=== PATIENT | female | born 1945 | race Caucasian/White ===

== ENCOUNTER 2024-05-07 12:11 | Inpatient (IN) | payer MEDICARE, BC, SELFPAY ==
[2024-05-07] VITALS (8 sets, daily range): BP systolic 109–127; BP diastolic 49–63
[2024-05-07 05:14] LABS: % Basophils 0.4 % (0-2); % Eosinophils 0.6 % (0-6); % Immature Granulocytes 0.4 % (0-0.5); % Lymphocytes 13.7 % (20.5-51.1); % Neutrophils 77.9 % (42.2-75.2); Absolute Basophils 0.1 10^3/uL (0-0.2); Absolute Eosinophils 0.1 10^3/uL (0-0.7); Absolute Lymphocytes 1.6 10^3/uL (1.2-3.4); Absolute Monocytes 0.8 10^3/uL (0.1-0.6); Absolute Neutrophils 8.8 10^3/uL (1.4-6.5); Hemoglobin 13.1 g/dL (12.0-16.0); Mean Corp Hgb Conc. 34.5 g/dL (33.0-37.0); Mean Corpuscular Hgb 31.1 pg (27.0-31.0); Mean Corpuscular Volume 90.3 fL (81.0-99.0); Mean Platelet Volume 10.6 fL (7.4-10.4); Nucleated Red Blood Cells % 0 %; Platelet Count 249 10^3/uL (130-400); Red Blood Cell Count 4.21 10^6/uL (4.20-5.40); Red Cell Dist. Width 12.4 % (11.5-14.5); White Blood Cell Count 11.3 10^3/uL (4.8-10.8)
[2024-05-07 05:38] LABS: ALT (SGPT) 20 U/L (0-35); AST (SGOT) 30 U/L (14-36); Albumin 4.4 g/dl (3.5-5.0); Alkaline Phosphatase 102 U/L (38-126); Blood Urea Nitrogen 19 mg/dl (7-17); Calcium 9.7 mg/dl (8.4-10.2); Carbon Dioxide 25 mmol/L (22-30); Chloride 100 mmol/L (98-107); Glucose 126 mg/dl (70-99); Potassium 3.7 mmol/L (3.5-5.1); Sodium 136 mmol/L (135-145); Total Bilirubin 0.7 mg/dl (0.2-1.3); eGFR > 60.00
--- NOTE | 2024-05-07 06:04 | ED.GENMED ---
History of Present Illness
<Valdez Martinez MD, Resident - Last Filed: 05/07/24 15:10>
General
Chief Complaint: Abdominal Pain
Source: patient and family
Time Seen by Provider: 05/07/24 06:02
Nursing documentation reviewed up to this point in time: agreed with
Travel History
Have you traveled to any high risk areas for coronavirus over the past 14 days?: No
Have you had any contact with someone who has COVID-19?: No
Do you have any symptoms of coronavirus? Fever > 100 degrees, chills, cough, shortness of breath, sore throat, loss of taste or smell, muscle aches, or headache?: No
History of Present Illness
History of Present Illness:
79-year-old female with PMH of hypercholesterolemia, osteopenia, and past surgical history of MARY/BSO who presented to the emergency department today with right upper quadrant sharp abdominal pain, rated 9/10, radiating to the back and to the right
leg that started around 2 AM this morning. Patient stated that the pain has moved to the epigastric region and also to the suprapubic area. Pain has not identified any aggravating or relieving factors. Patient was seen with daughter at bedside
who stated that her mom has been lifting heavy objects recently while trying to help her dad who is sick. Patient reports that she has not been drinking enough water as she should.
Past History
<Valdez Martinez MD, Resident - Last Filed: 05/07/24 15:10>
Past History
ED Past Medical History: Hypercholesterolemia and Other (Osteopenia)
ED Past Surgical History: Gynecological (MARY/BSO)
Patient has exhibited threatening behavior?: No
Social History
Tobacco: Non-smoker
Alcohol: Occasional
Drug: None
Personal:
Living: with family
Employment: Retired
Review of Systems
<Valdez Martinez MD, Resident - Last Filed: 05/07/24 15:10>
Review of Systems
All Other Systems: ROS reviewed and negative except as documented in HPI and ROS
Phy Exam
<Valdez Martinez MD, Resident - Last Filed: 05/07/24 15:10>
General Physical Exam
General Presentation: well appearing and no apparent distress
General age: appears stated age
General Skin: warm
General Habitus: normal
General Mental: alert
General Hydration: dry mucous membranes
Cardiovascular Exam
Cardiovascular Exam: regular rate/rhythm, no edema, no gallop and no murmur
Pulmonary Exam
Pulmonary Exam: lungs clear, no respiratory distress, no rales and no crackles
Gastrointestinal Exam
Gastrointestinal Exam: normal bowel sounds, non tender, soft and no organomegaly
Neurological Exam
Neurological Exam: alert, oriented x3, CN II-XII intact and no motor deficits
Cranial
Cranial Nerves: normal
Course
<Valdez Martinez MD, Resident - Last Filed: 05/07/24 15:10>
Orders/Labs/Results
Orders:
Orders
05/07/24 04:53
CMP [Comprehensive Metabolic Panel] Urgent
Complete Blood Count/With Diff Urgent
Lipase Urgent
Comment: ADD ON
05/07/24 05:16
EKG [Electrocardiogram (*1)] Urgent
Reason for Study: Abdominal Pain
EKG- Treatment ONCE
05/07/24 05:49
CR Chest - 2 Views Urgent
Comment:
Reason For Exam: abd pain, chest pain
05/07/24 05:52
Add On- LAB Urgent
Tests Added?: lipase
05/07/24 05:53
Troponin I Urgent
05/07/24 Breakfast
NPO
Allow oral meds: Yes
Allow clear liquids: No
NPO with Ice Chips: Yes
05/07/24 06:15
US Abdomen Complete/Upper Stat
Comment:
Reason For Exam: RUQ/ epigastric abd pain
05/07/24 07:21
0.9% Sodium Chloride 1000 ml [Nss] 1,000 ml IV BOLUS
HYDROmorphone [Dilaudid] 0.5 mg IV NOW STA
Ondansetron Injectable [Zofran] 4 mg IV NOW STA
05/07/24 07:24
CT Abd/pelvis W Iv Cont Urgent
Comment:
Reason For Exam: Abdominal pain
05/07/24 09:40
HYDROmorphone [Dilaudid] 0.5 mg IV NOW STA
05/07/24 09:54
Ondansetron Injectable [Zofran] 4 mg IV NOW STA
05/07/24 12:05
Admit/Transfer Patient As Directed
Co-Sign Provider:
Level of Care: Inpatient admission
Assign to:: Medical/Surgical
Physician / Group: Hospitalist
Diagnosis: SBO
Reason for Hospitalization: SBO
Expected length of stay greater than two midnights?: Yes
ELOS- Estimated Length of Stay in days: 2
I certify the patient meets the requirements for IP care: Yes
Code Status As Directed
Resuscitation Status: Full Code
PRN Pain Medication Management As Directed
May give lesser potent ordered pain med per pt: Yes
preference::
Protocol:: Medication orders for pain may be administered in a
manner that supports deferring to patient preference
when the pt is:
- Requesting an ordered lesser potent pain medication.
Least to most potent pain medications are defined
as: acetaminophen < NSAID < tramadol < opioids
(morphine, oxycodone, hydromorphone).
- Requesting a lesser dose of the same medication IF
ORDERED.
- Requesting a less intrusive route of administration
if both routes are prescribed by the provider (PO <
IV).
05/07/24 14:08
Bisacodyl [Dulcolax] 10 mg RECTAL [id number] PRN
Dextrose 5%/Lactringers 1000ML [D5lr] 1,000 ml IV 80 mls/hr
Docusate W/Senna [Senokot-S] 1 tablet PO BIDPRN PRN
HYDROmorphone [Dilaudid] 0.5 mg IV Q4HPRN PRN
Ketorolac [Toradol] 10 mg IV Q6HPRN PRN
Polyethylene Glycol Powder [Miralax] 17 grams PO DAILYPRN PRN
05/07/24 14:08
Activity As Directed
Activity Level: Ambulate
Vital Signs As Directed
Frequency: Per unit guidelines
DX Deep Vein Thrombosis Video Routine
05/07/24 18:00
Enoxaparin Sodium [Lovenox] 40 mg SC QPM
05/08/24 06:00
Basic Metabolic Panel IN AM
Complete Blood Count/With Diff IN AM
TSH IN AM
Vitamin B12 IN AM
CR Abdomen - 2 Views IN AM
Comment:
Reason For Exam: Abdominal pain, nausea
Abnormal Lab Results
05/07/24
04:53
WBC 11.3 H 10^3/uL
(4.8-10.8)
MCH 31.1 H pg
(27.0-31.0)
MPV 10.6 H fL
(7.4-10.4)
Absolute Neuts (auto) 8.8 H 10^3/uL
(1.4-6.5)
Absolute Monos (auto) 0.8 H 10^3/uL
(0.1-0.6)
Neutrophils % 77.9 H %
(42.2-75.2)
Lymphocytes % 13.7 L %
(20.5-51.1)
BUN 19 H mg/dl
(7-17)
Glucose 126 H mg/dl
(70-99)
05/07/24 04:53
05/07/24 04:53
Vital Signs
Initial and Last Documented VS:
Initial Vital Signs
Temp Pulse Resp BP Pulse Ox
97.8 F 52 18 127/63 99
05/07/24 04:39 05/07/24 04:39 05/07/24 04:39 05/07/24 04:39 05/07/24 04:39
Last Documented Vital Signs
Temp Pulse Resp BP Pulse Ox
97.2 F 53 18 112/51 97
05/07/24 14:48 05/07/24 14:48 05/07/24 14:48 05/07/24 14:48 05/07/24 14:48
<Edy Cedillo, DO - Last Filed: 05/07/24 08:14>
Orders/Labs/Results
Orders:
Orders
05/07/24 04:53
CMP [Comprehensive Metabolic Panel] Urgent
Complete Blood Count/With Diff Urgent
Lipase Urgent
Comment: ADD ON
05/07/24 05:16
EKG [Electrocardiogram (*1)] Urgent
Reason for Study: Abdominal Pain
EKG- Treatment ONCE
05/07/24 05:49
CR Chest - 2 Views Urgent
Comment:
Reason For Exam: abd pain, chest pain
05/07/24 05:52
Add On- LAB Urgent
Tests Added?: lipase
05/07/24 05:53
Troponin I Urgent
05/07/24 Breakfast
NPO
Allow oral meds: Yes
Allow clear liquids: No
NPO with Ice Chips: Yes
05/07/24 06:15
US Abdomen Complete/Upper Stat
Comment:
Reason For Exam: RUQ/ epigastric abd pain
05/07/24 07:21
0.9% Sodium Chloride 1000 ml [Nss] 1,000 ml IV BOLUS
HYDROmorphone [Dilaudid] 0.5 mg IV NOW STA
Ondansetron Injectable [Zofran] 4 mg IV NOW STA
05/07/24 07:24
CT Abd/pelvis W Iv Cont Urgent
Comment:
Reason For Exam: Abdominal pain
05/07/24 09:40
HYDROmorphone [Dilaudid] 0.5 mg IV NOW STA
05/07/24 09:54
Ondansetron Injectable [Zofran] 4 mg IV NOW STA
05/07/24 12:05
Admit/Transfer Patient As Directed
Co-Sign Provider:
Level of Care: Inpatient admission
Assign to:: Medical/Surgical
Physician / Group: Hospitalist
Diagnosis: SBO
Reason for Hospitalization: SBO
Expected length of stay greater than two midnights?: Yes
ELOS- Estimated Length of Stay in days: 2
I certify the patient meets the requirements for IP care: Yes
Code Status As Directed
Resuscitation Status: Full Code
PRN Pain Medication Management As Directed
May give lesser potent ordered pain med per pt: Yes
preference::
Protocol:: Medication orders for pain may be administered in a
manner that supports deferring to patient preference
when the pt is:
- Requesting an ordered lesser potent pain medication.
Least to most potent pain medications are defined
as: acetaminophen < NSAID < tramadol < opioids
(morphine, oxycodone, hydromorphone).
- Requesting a lesser dose of the same medication IF
ORDERED.
- Requesting a less intrusive route of administration
if both routes are prescribed by the provider (PO <
IV).
05/07/24 14:08
Bisacodyl [Dulcolax] 10 mg RECTAL [id number] PRN
Dextrose 5%/Lactringers 1000ML [D5lr] 1,000 ml IV 80 mls/hr
Docusate W/Senna [Senokot-S] 1 tablet PO BIDPRN PRN
HYDROmorphone [Dilaudid] 0.5 mg IV Q4HPRN PRN
Ketorolac [Toradol] 10 mg IV Q6HPRN PRN
Polyethylene Glycol Powder [Miralax] 17 grams PO DAILYPRN PRN
05/07/24 14:08
Activity As Directed
Activity Level: Ambulate
Vital Signs As Directed
Frequency: Per unit guidelines
DX Deep Vein Thrombosis Video Routine
05/07/24 18:00
Enoxaparin Sodium [Lovenox] 40 mg SC QPM
05/08/24 06:00
Basic Metabolic Panel IN AM
Complete Blood Count/With Diff IN AM
TSH IN AM
Vitamin B12 IN AM
CR Abdomen - 2 Views IN AM
Comment:
Reason For Exam: Abdominal pain, nausea
Abnormal Lab Results
05/07/24
04:53
WBC 11.3 H 10^3/uL
(4.8-10.8)
MCH 31.1 H pg
(27.0-31.0)
MPV 10.6 H fL
(7.4-10.4)
Absolute Neuts (auto) 8.8 H 10^3/uL
(1.4-6.5)
Absolute Monos (auto) 0.8 H 10^3/uL
(0.1-0.6)
Neutrophils % 77.9 H %
(42.2-75.2)
Lymphocytes % 13.7 L %
(20.5-51.1)
BUN 19 H mg/dl
(7-17)
Glucose 126 H mg/dl
(70-99)
05/07/24 04:53
05/07/24 04:53
Vital Signs
Initial and Last Documented VS:
Initial Vital Signs
Temp Pulse Resp BP Pulse Ox
97.8 F 52 18 127/63 99
05/07/24 04:39 05/07/24 04:39 05/07/24 04:39 05/07/24 04:39 05/07/24 04:39
Last Documented Vital Signs
Temp Pulse Resp BP Pulse Ox
97.2 F 53 18 112/51 97
05/07/24 14:48 05/07/24 14:48 05/07/24 14:48 05/07/24 14:48 05/07/24 14:48
<Valdez Martinez MD, Resident - Last Filed: 05/07/24 15:10>
MDM/Problems Addressed
Differential Diagnosis Includes:
Small bowel obstruction, acute cholecystitis/cholelithiasis, acute pancreatitis, nephrolithiasis, GERD, stomach ulcer.
MDM/Problems Addressed:
79-year-old female with PMH of MARY/BSO who presented to the emergency department today with constant stabbing abdominal pain located in RUQ radiating to the back and right LE rated 9/10. While in the ED, patient complains that the pain has moved to
the epigastric region and suprapubic area. Her WBC count is 11.3, with neutrophilic predominance seven 7.9, BUN 19 creatinine 0.8, troponin 0.012. BP 119/57, pulse 56, respiratory 10, afebrile and saturating at 98% on room air.
EKG was remarkable for sinus bradycardia with first-degree AV block.
Abdominal ultrasound shows mild diffuse liver disease but no sonographic evidence of cholecystitis, cholelithiasis or biliary obstruction.
Will give IV fluid, Dilaudid, Zofran.
Will get CT scan of abdomen and pelvis with IV contrast to assess for bowel obstruction given her PMH of hysterectomy.
<Valdez Martinez MD, Resident - Last Filed: 05/07/24 15:10>
*Critical Care Note
Total Time (30-74mins, 75-104mins- exclusive of procedures): Not Applicable
<Valdez Martinez MD, Resident - Last Filed: 05/07/24 15:10>
Update Note
Update Note:
CT abdomen/pelvis with IV contrast done today in the ED was remarkable for partial small bowel obstruction which transition point in the central mid pelvic area. Discussed with admitting hospitalist and general surgery.
Patient abdominal pain improved with Dilaudid however patient's family stated that her abdominal pain has continued to worsen again and a little bit nauseous. Will give another dose of Dilaudid and Zofran.
ED Attending Note
<Valdez Martinez MD, Resident - Last Filed: 05/07/24 15:10>
-
Portions of this chart may have been created with voice recognition software.� Occasional wrong word or��sound alike� substitutions may have occurred due to the inherent limitations of voice recognition software.
<Edy Cedillo, DO - Last Filed: 05/07/24 08:14>
ED Attending Note
Patient seen and examined by attending physician: Yes
I performed a history and physical exam of patient and discussed management with resident, I reviewed resident's note and agree with documented findings and plan of care.: Yes
ED Attending Note:
Seen with resident examined independently 80-year-old female past surgical history for gynecologic surgery, still has her appendix and gallbladder, fairly acute onset of abdominal pain distention nausea vomiting, had been lifting some heavy objects
thought she may have pulled her back out initially here she looks uncomfortable, diffuse tenderness without guarding or rebound EKG and ultrasound are noted, sent for CT to my eye looks like an SBO, formal report pending
Discharge Plan
Departure
Patient Disposition: Admit
Admit to: Med/Surg
Presentation/result/management discussed w/ accepting MD/DO: Hospitalist
Patient with high blood pressure during this ER visit?: No
Condition: Fair
Covid-19: Not Applicable
Discharge Problem:
Partial obstruction of small intestine, Hyperlipidemia
Interventions
Interventions:
*Risk Screen - Suicide Last Done: 05/07/24 04:39
*General Assessment Last Done: 05/07/24 04:39
*Neglect/Abuse Screening Last Done: 05/07/24 04:39
ED- Fall Risk Assessment Last Done: 05/07/24 04:49
*ED COVID-19 Vaccine History Last Done: 05/07/24 04:49
*Nursing Disposition Last Done: 05/07/24 14:00
FS-Qtujsc-Utxhqpznvn Assessment Last Done: 05/07/24 04:49
Discharge Date and Time
Discharge Date/Time: 05/07/24 14:00
[2024-05-07 06:27] LABS: Lipase 108 U/L (23-300)
[2024-05-07 07:05] LABS: Troponin I < 0.012 ng/ml
[2024-05-07] MEDS: NSS 1000 IV (07:38)
[2024-05-07] MEDS: ZOFRAN 4 MG IV ×2 (07:43→10:08)
[2024-05-07] MEDS: DILAUDID 0.5 MG IV ×2 (07:43→10:08)
--- NOTE | 2024-05-07 09:58 | CON.GS ---
Medical History
-
Chief Complaint: Abdominal pain
History of Present Illness:
Patient is a 79 yo F with a PMH of vaginal hysterectomy, BSO, and SAMEER who presents with acute onset abdominal pain and discomfort. Ms. Wilkerson states that her symptoms began abruptly this morning at approximately 2 AM. She reports feeling well prior
to this, however, her daughter and to report that she had a more mild crampy abdominal pain approximately 1 week ago which quickly resolved. Daughter reports overexerting herself taking care of her over the past several weeks. She
reports issues with dehydration and weakness. Associated nausea and vomiting. No fevers. She denies any chronic GI issues. Prior issues with SBO's. No clear dietary indiscretion. Currently she feels mildly improved though was having some
continued upper abdominal discomfort.
Past Medical History
Past Medical History: None
Past Surgical History: Gynecological (Vaginal hysterectomy, BSO, SAMEER)
Social History
Tobacco: Non-Smoker
Alcohol: None
Drug: None
Personal:
Living: With Family
Family History
Family History: Reviewed & Not Pertinent
Allergies / Home Medications
Allergy/AdvReac Type Severity Reaction Status Date / Time
No Known Allergies Allergy Verified 05/07/24 04:39
Review of Systems
-
A 10 point review of systems was completed, and was negative except as per HPI.
Physical Exam
Vital Signs
Temp Pulse Resp BP Pulse Ox
97.8 F 56 10 119/57 98
05/07/24 04:39 05/07/24 07:45 05/07/24 07:45 05/07/24 07:31 05/07/24 07:45
05/06/24 05/07/24 05/08/24
06:59 06:59 06:59
Actual Weight 58.4 kg
Lab Results
05/07/24 04:53
05/07/24 04:53
WBC 11.3 10^3/uL (4.8-10.8) H 05/07/24 04:53
Hgb 13.1 g/dL (12.0-16.0) 05/07/24 04:53
Hct 38.0 % (37.0-47.0) 05/07/24 04:53
Plt Count 249 10^3/uL (130-400) 05/07/24 04:53
Abs Immat Gran (auto) 0.0 10^3/uL (0-0.05) 05/07/24 04:53
Neutrophils % 77.9 % (42.2-75.2) H 05/07/24 04:53
Physical Exam
General: Well Developed, Well Nourished, No Apparent Distress and Other (Tired and deconditioned)
Respiratory: Non Labored Respirations
Cardiac: Regular Rhythm
GI: Soft, Tender (Mild diffuse), Distended (Mild, tympanitic) and Other (Non-peritoneal)
Musculoskeletal: No Edema
Skin: Warm and Dry
Neuro: Nonfocal/Grossly Intact
Data Reviewed
-
CT Scan: Image Personally Visualized and interpreted and Report Reviewed by me
Labs: Labs Reviewed by me
Old Records: Reviewed
Assessment / Plan
-
Patient is a 79 yo F p/w SBO likely secondary to adhesions
The natural history and pathophysiology of SBO's was reviewed. Though her hysterectomy was transvaginal in nature there is a comment of needing to lyse adhesions during this procedure, and her transition point appears to be within the pelvis. CT
scan imaging was reviewed and no evidence of pneumatosis, free air, or significant bowel wall thickening, no mesenteric edema or clear closed-loop anatomy. Options for management reviewed. Given clinical stability and radiographic findings
recommend a trial of medical management; NPO, IVF, NGT decompression if further nausea or episodes of vomiting (stomach appears to be fairly well decompressed on CT scan imaging). Repeat abdominal x-ray in the AM. All questions answered.
-- NPO, IVF
-- NGT if continued nausea or emesis
-- Correct lytes, minimize narcotics, ambulate
-- Repeat abdominal X-ray in AM
--- NOTE | 2024-05-07 10:51 | HPS.HSE ---
Family Physician
-
Family Physician: Sari Isaac
Chief Complaint
-
Abdominal pain
History of Present Illness
79-year-old female presented with abdominal pain. Started this morning around 2:00 she has had a mild pain a week ago which resolved. No fever. No diarrhea no vomiting.
Medical History
Past Medical History
Past Medical History: Reports Other
Additional Past Medical History:
Cognitive dysfunction
Past Surgical History: Reports Other
Additional Past Surgical History:
History of vaginal hysterectomy, BSO
Social History
Tobacco: Non-smoker
Alcohol: Other (3 times a week a glass of wine)
Drug: None
Personal:
Living: With Family
Family History
Family History: Cancer (lung ca father)
Allergies / Home Medications
Allergies reflects when Allergies were last updated in [email or web address].
Home Medications with original date entered in [email or web address]
Allergy/Medication List:
Allergies
Allergy/AdvReac Type Severity Reaction Status Date / Time
No Known Allergies Allergy Verified 05/07/24 04:39
Review of Systems
-
History Source: Patient
Respiratory: Denies Trouble Breathing
Cardiac: Denies Chest Pain
Abdomen/GI: Reports Abdominal Pain
Physical Exam
Vital Signs
Vital Signs
Temp Pulse Resp BP Pulse Ox
97.8 F 56 20 119/57 97
05/07/24 04:39 05/07/24 10:15 05/07/24 10:15 05/07/24 07:31 05/07/24 10:15
Physical Exam
General: Conversant
Respiratory: Clear
Cardiac: S1/S2 and Regular Rhythm
GI: Soft and Non Tender; No Normal Bowel Sounds
Skin: Warm
Neuro: Awake and Alert
Psych: Calm
Laboratory Results
-
05/07/24 04:53
05/07/24 04:53
Laboratory Results
Total Bilirubin 0.7 mg/dl (0.2-1.3) 05/07/24 04:53
AST 30 U/L (14-36) 05/07/24 04:53
ALT 20 U/L (0-35) 05/07/24 04:53
Alkaline Phosphatase 102 U/L (38-126) 05/07/24 04:53
Troponin I < 0.012 ng/ml 05/07/24 05:53
Lipase 108 U/L (23-300) 05/07/24 04:53
Data Reviewed
-
Diagnostic Radiology: Image Personally Visualized and interpreted (Chest x-ray-no pneumonia fibroids)
CT Scan: Report Reviewed by me (CT abdomen and pelvis with IV contrast-portions small bowel obstruction with transition point central to mid pelvis)
Ultrasound: Report Reviewed by me (Ultrasound of the abdomen-no evidence of cholelithiasis, acute cholecystitis or biliary obstruction. Mild diffuse liver disease.)
Impression/Plan
-
IMPRESSION/PLAN:
# Small bowel obstruction
Admit to MedSurg
IV fluids send keep n.p.o.
Surgery consultation
Repeat x-ray in the morning to follow check TSH
Discussed with daughter regarding normal course as well as complications which can happen with small bowel obstruction, and that rarely one may need surgery. Conservative management will be trialed first.
# Cognitive dysfunction
# DVT prophylaxis-Lovenox
# Full code
Discussed with daughter at bedside
--- NOTE | 2024-05-07 12:19 | PHANOTE ---
med rec note awaiting family to come back to patient room, patient currently has not pharmacy medication
[2024-05-07] MEDS: TORADOL 10 MG IV (14:36)
[2024-05-07] MEDS: D5LR 1000 IV (14:36)
[2024-05-07] MEDS: LOVENOX 40 MG SC (18:22)
--- NOTE | 2024-05-08 00:38 | PTCARENOTE ---
Pt found to be screaming out for help. Upon entering the room the blood was on floor and Pt found to have pulled IV out. When asking orientation questions Pt found to be annoyed and stated she was leaving. Nurse reoriented Pt both times, and
educated Pt on why she is here. Nurse also educated Pt on importance of using call lyon when needing assistance. Bed alarm was placed for safety measures. Care on going at this time.
[2024-05-08] MEDS: ZOFRAN 4 MG IV ×2 (02:28→17:12)
[2024-05-08] MEDS: TORADOL 10 MG IV (02:29)
[2024-05-08] MEDS: D5LR 1000 IV ×2 (04:19→15:08)
[2024-05-08 06:49] LABS: % Basophils 0.4 % (0-2); % Eosinophils 0.6 % (0-6); % Immature Granulocytes 0.3 % (0-0.5); % Lymphocytes 10.1 % (20.5-51.1); % Monocytes 6.8 % (1.7-9.3); % Neutrophils 81.8 % (42.2-75.2); Absolute Basophils 0.1 10^3/uL (0-0.2); Absolute Eosinophils 0.1 10^3/uL (0-0.7); Absolute Lymphocytes 1.3 10^3/uL (1.2-3.4); Absolute Monocytes 0.9 10^3/uL (0.1-0.6); Absolute Neutrophils 10.5 10^3/uL (1.4-6.5); Hematocrit 38.1 % (37.0-47.0); Hemoglobin 12.9 g/dL (12.0-16.0); Mean Corp Hgb Conc. 33.9 g/dL (33.0-37.0); Mean Corpuscular Hgb 31.2 pg (27.0-31.0); Mean Platelet Volume 11.1 fL (7.4-10.4); Nucleated Red Blood Cells % 0 %; Platelet Count 248 10^3/uL (130-400); Red Blood Cell Count 4.14 10^6/uL (4.20-5.40); Red Cell Dist. Width 12.8 % (11.5-14.5); White Blood Cell Count 12.8 10^3/uL (4.8-10.8)
[2024-05-08 06:58] VITALS: BP 126/62
[2024-05-08 07:03] LABS: Blood Urea Nitrogen 16 mg/dl (7-17); Calcium 9.7 mg/dl (8.4-10.2); Carbon Dioxide 27 mmol/L (22-30); Chloride 102 mmol/L (98-107); Glucose 122 mg/dl (70-99); Potassium 3.8 mmol/L (3.5-5.1); Sodium 139 mmol/L (135-145); eGFR > 60.00
[2024-05-08 07:27] LABS: TSH 0.32 uIU/ml (0.47-4.68)
[2024-05-08 07:46] LABS: Vitamin B12 422 pg/ml (239-931)
--- NOTE | 2024-05-08 09:14 | W.PN.GS2 ---
Today's Communication / Plan
-
Trial cld
Assessment / Plan
-
79F with pSBO, appears to be resolving
AFVSS, clinically improved with no complaints this am
WBC 11K --> 12K, suspect reactive due to multiple episodes of vomiting yesterday
KUB today c/w ongoing pSBO
Plan:
Trial clears
ADAT to LRD over next 24 hrs
Ambulate
IVF
DVT ppx
All other care as per primary team
Subjective Data
-
Date of Service: May 08, 2024
AFVSS, ambulating, voiding, feels much better 'like a new woman,' unsure about passing flatus, pain has resolved, nausea resolved
Objective Data
-
Intake and Output
05/07/24 05/08/24 05/09/24
06:59 06:59 06:59
Intake Total 240 / 240
Output Total 50 / 50
Balance 190 / 190
Intake:
Oral fluids 240 / 240
Output:
Emesis 50 / 50
Other:
Number of approximated MODERATE 2
amounts of urine
Number of approximated LARGE 1
amounts of urine
Number of immeasurable emeses? 1
Vital Signs
Temp Pulse Resp BP Pulse Ox
98.4 F 61 18 126/62 95
05/08/24 06:58 05/08/24 06:58 05/08/24 06:58 05/08/24 06:58 05/08/24 06:58
Lab Results
05/08/24 04:45
05/08/24 04:45
Calcium 9.7 mg/dl (8.4-10.2) 05/08/24 04:45
Total Bilirubin 0.7 mg/dl (0.2-1.3) 05/07/24 04:53
AST 30 U/L (14-36) 05/07/24 04:53
ALT 20 U/L (0-35) 05/07/24 04:53
Alkaline Phosphatase 102 U/L (38-126) 05/07/24 04:53
Total Protein 7.0 g/dl (6.3-8.2) 05/07/24 04:53
Albumin 4.4 g/dl (3.5-5.0) 05/07/24 04:53
Physical Exam
-
Gen: NAD
bd: soft, nd, nt
Patient has a rincon catheter: No
Patient has a central line: No
[2024-05-08] MEDS: THIAMINE INJECTION 200 MG IV (12:15)
--- NOTE | 2024-05-08 12:31 | W.PN.HOSP.TC ---
Today's Communication/Plan
-
CBC in am
Follow on clears
Assessment / Plan
Assessment / Plan
CVS: S1-S2 normal
Chest: CTA B/L
Abdomen: Soft, NT, deinished Bowel sounds
Extremities: No edema
# Small bowel obstruction
IV fluids
CLD started
Surgery following
# Cognitive dysfunction
# DVT prophylaxis-Lovenox
# Full code
D/W RN
Anticipated Discharge: Within 24 hours
Subjective/Interval History
-
Date of Service: May 08, 2024
Objective Data
-
Labs:
Laboratory Results
05/08/24
04:45
WBC 12.8 H
Hgb 12.9
Hct 38.1
Plt Count 248
Sodium 139
Potassium 3.8
Chloride 102
Carbon Dioxide 27
BUN 16
Creatinine 0.8
Glucose 122 H
Calcium 9.7
Vital Signs:
Vital Signs
Temp Pulse Resp BP Pulse Ox
98.4 F 61 18 126/62 95
05/08/24 06:58 05/08/24 06:58 05/08/24 06:58 05/08/24 06:58 05/08/24 06:58
I&O
05/07/24 05/08/24 05/09/24
06:59 06:59 06:59
Intake Total 240 / 240
Output Total 50 / 50
Balance 190 / 190
[2024-05-08 14:33] VITALS: BP 150/96
--- NOTE | 2024-05-08 15:17 | CM ---
Spoke with pts Edouard to complete IA
Pt lives with her in a 1 story home; 1 step to enter, FF set-up
Independent with ADL's/ambulation - requires prompting. Forgetful/confused at baseline
DME - none
SNF/HH - denies past hx
Has ride at discharge
PCP - Sari Lackey
Pharm - [facility]
Plan - anticipate home with family care when medically ready
[2024-05-08] MEDS: LOVENOX 40 MG SC (16:38)
--- NOTE | 2024-05-08 21:04 | PTCARENOTE ---
Resumed care of pt with family at bedside. Pt AAOx1- forgetful. Pt states she had a normal formed BM. Denies abd pain, N/V at this time. IVF infusing as ordered. Bed alarm in place for pt safety. Will continue to monitor.
[2024-05-08 22:33] VITALS: BP 134/73
[2024-05-09] VITALS (14 sets, daily range): BP systolic 115–142; BP diastolic 56–72
[2024-05-09] MEDS: ZOFRAN 4 MG IV (02:54)
[2024-05-09] MEDS: D5LR 1000 IV (02:54)
--- NOTE | 2024-05-09 02:59 | PTCARENOTE ---
Pt awake, pt congested and blowing nose, reports nose keeps running. Pt also holding stomach stating she feels sick, nauseous. PRN Zofran administered as ordered. pt assisted to bathroom, voided without issues. Pt assisted back to bed and positioned
self per comfort. IVF infusing as ordered. WIll continue to monitor.
[2024-05-09 06:31] LABS: % Basophils 0.2 % (0-2); % Eosinophils 0.1 % (0-6); % Immature Granulocytes 0.5 % (0-0.5); % Lymphocytes 6.5 % (20.5-51.1); % Monocytes 7.7 % (1.7-9.3); Absolute Immature Granulocytes 0.1 10^3/uL (0-0.05); Absolute Monocytes 1.2 10^3/uL (0.1-0.6); Absolute Neutrophils 12.8 10^3/uL (1.4-6.5); Hematocrit 40.1 % (37.0-47.0); Hemoglobin 13.7 g/dL (12.0-16.0); Mean Corp Hgb Conc. 34.2 g/dL (33.0-37.0); Mean Corpuscular Hgb 31.6 pg (27.0-31.0); Mean Corpuscular Volume 92.4 fL (81.0-99.0); Mean Platelet Volume 11.3 fL (7.4-10.4); Nucleated Red Blood Cells % 0 %; Platelet Count 272 10^3/uL (130-400); Red Blood Cell Count 4.34 10^6/uL (4.20-5.40); Red Cell Dist. Width 12.8 % (11.5-14.5)
[2024-05-09 07:24] LABS: TSH Reflex To Free T4 0.98 uIU/ml (0.47-4.68)
--- NOTE | 2024-05-09 08:35 | W.PN.GS2 ---
Today's Communication / Plan
-
Added onto the OR
Assessment / Plan
-
Assessment: 79-year-old female with high-grade small bowel obstruction transition point in the pelvis on CT imaging
Failed p.o. challenge with worsening obstructive symptoms
AFVSS
WBC climbing to 15, electrolytes okay
Plan: personally placed NG tube; over a liter of contents immediately returned even after vomiting probably about a liter earlier
NG tube decompression
Adjusted IV fluids -normal saline and increased rate
Added onto the OR schedule today -diagnostic laparoscopy, laparoscopic lysis of adhesions, possible open, possible bowel resection
The anticipated operative procedures fully reviewed in detail with the patient, her daughter at bedside and patient's via phone call. We discussed potential operative findings and their management (conversion open, repair of intestinal
track, possible bowel resection), discussed benefits and risks such as but not limited to bleeding, infection or wound related complications, iatrogenic injury to surrounding viscera. Discussed typical postoperative recovery pending operative
findings and any questions were addressed.
Invanz ordered on-call to the OR
Subjective Data
-
Date of Service: May 09, 2024
Patient seen and examined.
Within moments began vomiting profusely -feculent/bilious contents
Abdominal discomfort reported but not significant pain
States that she has just been feeling progressively more distended since yesterday afternoon and overnight
Small bowel movement overnight -solid old stool, no flatus since admission
Daughter also came in and was at bedside
Objective Data
-
Intake and Output
05/08/24 05/09/24 05/10/24
06:59 06:59 06:59
Intake Total 240 / 240 1919
Output Total 50 / 50
Balance 190 / 190 1919
Intake:
Oral fluids 240 / 240
IV fluids (Total) 1919
IV piggybacks 0 / 0
Output:
Emesis 50 / 50
Other:
Number of approximated MODERATE 2
amounts of urine
Number of approximated LARGE 1 1
amounts of urine
Number of immeasurable emeses? 1
Vital Signs
Temp Pulse Resp BP Pulse Ox
98.5 F 75 16 141/67 94
05/09/24 07:05 05/09/24 07:05 05/09/24 07:05 05/09/24 07:05 05/09/24 07:05
Lab Results
05/09/24 04:36
05/08/24 04:45
Calcium 9.7 mg/dl (8.4-10.2) 05/08/24 04:45
Total Bilirubin 0.7 mg/dl (0.2-1.3) 05/07/24 04:53
AST 30 U/L (14-36) 05/07/24 04:53
ALT 20 U/L (0-35) 05/07/24 04:53
Alkaline Phosphatase 102 U/L (38-126) 05/07/24 04:53
Total Protein 7.0 g/dl (6.3-8.2) 05/07/24 04:53
Albumin 4.4 g/dl (3.5-5.0) 05/07/24 04:53
Physical Exam
-
NAD AAOx3 but acutely ill-appearing
ABD: Distended, tympanitic, mild tenderness. No rebound rigidity or guarding
--- NOTE | 2024-05-09 10:48 | W.PN.HOSP.TC ---
Today's Communication/Plan
-
CXR
U/A
For OR today
Assessment / Plan
Assessment / Plan
CVS: S1-S2 normal
Chest: CTA B/L
Abdomen: Soft, NT, very diminished or known bowel sounds
Extremities: No edema
NG tube
# Small bowel obstruction
High-grade with transition point in the mid abdomen
Continue IV fluids
Liquid diet started-patient did not tolerate
Vomited large amounts today, NG tube placed with almost a liter of bilious fluid obtained to immediately
Continue NG tube decompression
Surgery following planning 4 OR today
Surgery discussed with patient's daughter and
# Leukocytosis
Chest x-ray ordered to rule out aspiration pneumonia/pneumonitis
Check urinalysis with cultures
Invanz on-call for OR noted
# Cognitive dysfunction
# Alcohol use 3 times a week-thiamine to be continued
# DVT prophylaxis-Lovenox
# Full code
D/W RN at bedside
Surgery discussed with patient's daughter and patient's -therefore I have not called
Anticipated Discharge: > 48 hours
Subjective/Interval History
-
Date of Service: May 09, 2024
Objective Data
-
Labs:
Laboratory Results
05/09/24
04:36
WBC 15.0 H
Hgb 13.7
Hct 40.1
Plt Count 272
Vital Signs:
Vital Signs
Temp Pulse Resp BP Pulse Ox
98.5 F 75 16 141/67 94
05/09/24 07:05 05/09/24 07:05 05/09/24 07:05 05/09/24 07:05 05/09/24 07:05
I&O
05/08/24 05/09/24 05/10/24
06:59 06:59 06:59
Intake Total 240 / 240 1919
Output Total 50 / 50
Balance 190 / 190 1919
--- NOTE | 2024-05-09 11:11 | CM ---
Chart reviewed
NPO
NGT to sx placed
OR today for diagnostic lap
CM will follow for d/c needs
Plan - TBD post-op
--- NOTE | 2024-05-09 12:23 | W.SUR.PREOP ---
Pre-Operative Surgical Note
-
I have examined this patient prior to the performance of the scheduled procedure.
The patient's condition is unchanged from the time of the current History and
Physical and the patient is able to undergo the scheduled procedure.
[2024-05-09] MEDS: NSS IV (12:38)
--- NOTE | 2024-05-09 13:07 | W.IMMPOSTOP ---
Addendum entered and electronically signed by Ashish Bennett MD 05/09/24 13:17:
#[id number]
Original Note:
Surgical Immed Post Op Note
-
Primary Surgeon: Ashish Bennett MD
Assisting Surgeon: Tee Spears MD, PGY1
Pre-op Diagnosis: Small bowel obstruction
Post-op Diagnosis: High-grade/closed-loop small bowel obstruction
Procedure Performed: Laparoscopic lysis of adhesions
Anesthesia Type: GETA +0.25% Marcaine with epinephrine
Specimen / Cultures: None
Estimated Blood Loss: 4 mL
Complications: None immediate
Operative Findings: Epiploic appendages of sigmoid colon causing internal hernia with resultant high-grade SBO and closed-loop component. Distended, inflamed small bowel but without ischemia. Adhesion lysed with Voyant vessel sealer. Additional
sigmoid colon adhesions to the vaginal cuff/pelvis lysed as well. No additional adhesions noted. Incidental Meckel's diverticulum.
Plan: Discontinued NG tube as expecting probable prompt return of GI function given band adhesion alone causing obstruction.
Okay for ice chips and sips for comfort but hold on further dietary advancement today
Patient's daughter and son-in-law updated postoperatively in the surgical waiting area
--- NOTE | 2024-05-09 14:30 | PTCARENOTE ---
Pt received from the PACU via bed. Transport was w/o incident. Pt is Awake, and drowsy. Pt denies nausea or pain at present time. VSS, Pt is afebrile. Pt w/ 4 Lap sites well approximated with surgi. glue, no drainage noted. Pt and pt's daughter
updated with plan of care. Pt and pt's daughter verbalized understanding of instructions. Call lyon is within reach.
[2024-05-09] MEDS: THIAMINE INJECTION 200 MG IV (15:08)
[2024-05-09] MEDS: STERILE WATER FOR INJECTION 10 ML IV (15:09)
[2024-05-09] MEDS: ROCEPHIN 1000 MG IV (15:09)
[2024-05-09] MEDS: NSS 1000 IV (15:21)
[2024-05-09 17:58] LABS: Urine Albumin Trace (Neg - Trace); Urine Bilirubin Negative (Negative); Urine Character Clear (Clear); Urine Color Yellow; Urine Glucose Negative (Negative); Urine Ketone Trace (Negative); Urine Leukocyte 1+ (Negative); Urine Nitrite Negative (Negative); Urine Occult Blood Negative (Negative); Urine Urobilinogen Negative (Neg - 1+)
[2024-05-09 18:07] LABS: Urine Mucus Few
[2024-05-09 18:08] LABS: Urine Bacteria Many (Negative); Urine Red Blood Cell 0-2 /HPF (0-2)
[2024-05-09] MEDS: LOVENOX 40 MG SC (18:13)
[2024-05-10] MEDS: NSS 1000 IV ×2 (02:16→10:28)
[2024-05-10 03:07] VITALS: BP 122/59
[2024-05-10 06:43] LABS: % Basophils 0.2 % (0-2); % Immature Granulocytes 0.4 % (0-0.5); % Lymphocytes 16.9 % (20.5-51.1); % Monocytes 8.2 % (1.7-9.3); % Neutrophils 73.3 % (42.2-75.2); Absolute Eosinophils 0.1 10^3/uL (0-0.7); Absolute Immature Granulocytes 0.1 10^3/uL (0-0.05); Absolute Lymphocytes 1.9 10^3/uL (1.2-3.4); Absolute Monocytes 0.9 10^3/uL (0.1-0.6); Absolute Neutrophils 8.3 10^3/uL (1.4-6.5); Hematocrit 34.4 % (37.0-47.0); Hemoglobin 11.4 g/dL (12.0-16.0); Mean Corp Hgb Conc. 33.1 g/dL (33.0-37.0); Mean Corpuscular Hgb 31.6 pg (27.0-31.0); Mean Corpuscular Volume 95.3 fL (81.0-99.0); Mean Platelet Volume 11.4 fL (7.4-10.4); Nucleated Red Blood Cells % 0 %; Platelet Count 210 10^3/uL (130-400); Red Blood Cell Count 3.61 10^6/uL (4.20-5.40); Red Cell Dist. Width 13.1 % (11.5-14.5); White Blood Cell Count 11.4 10^3/uL (4.8-10.8)
[2024-05-10 07:05] VITALS: BP 134/57
[2024-05-10 07:27] LABS: Blood Urea Nitrogen 17 mg/dl (7-17); Calcium 8.3 mg/dl (8.4-10.2); Carbon Dioxide 30 mmol/L (22-30); Chloride 104 mmol/L (98-107); Glucose 82 mg/dl (70-99); Sodium 140 mmol/L (135-145); eGFR > 60.00
[2024-05-10] MEDS: THIAMINE INJECTION 200 MG IV (10:16)
--- NOTE | 2024-05-10 10:31 | W.PN.HOSP.TC ---
Today's Communication/Plan
-
Advance diet to clear liquids and to full liquids if okay with surgeon
Possible discharge tomorrow as long as tolerating diet
Assessment / Plan
Assessment / Plan
CVS: S1-S2 normal
Chest: CTA B/L
Abdomen: Soft, NT, very diminished or known bowel sounds
Extremities: No edema
Feeling better today
# Small bowel obstruction
High-grade with transition point in the mid abdomen.
Liquid diet started-patient did not tolerate.
Vomited large amounts, NG tube placed with almost a liter of bilious fluid obtained to immediately 05/09/2024.
Patient was taken to the OR 05/09/[address] Bennett had laparoscopic lysis of adhesions.
Started on clear liquid diet today.
# Leukocytosis
Chest x-ray shows patchy parenchymal opacity likely aspiration pneumonia.
Abnormal urinalysis-cultures pending.
Continue ceftriaxone, change to Augmentin at discharge.
Would do antibiotics for a total of 5 days.
# Cognitive dysfunction
# Alcohol use 3 times a week-thiamine to be continued
# DVT prophylaxis-Lovenox
# Full code
D/W RN at bedside
Discussed with daughter and updated
Patient is very anxious to go but understands the rationale regarding staying to get diet advanced and make sure she tolerates prior to discharge.
Anticipated Discharge: Within 24 hours
Subjective/Interval History
-
Date of Service: May 10, 2024
Objective Data
-
Labs:
Laboratory Results
05/10/24
04:38
WBC 11.4 H
Hgb 11.4 L
Hct 34.4 L
Plt Count 210 D
Sodium 140
Potassium 4.0
Chloride 104
Carbon Dioxide 30
BUN 17
Creatinine 0.9
Glucose 82
Calcium 8.3 L
Vital Signs:
Vital Signs
Temp Pulse Resp BP Pulse Ox
98.2 F 57 16 134/57 99
05/10/24 07:05 05/10/24 07:05 05/10/24 07:05 05/10/24 07:05 05/10/24 07:05
I&O
05/09/24 05/10/24 05/11/24
06:59 06:59 06:59
Intake Total 1919 1660 / 1660
Output Total 600 / 600
Balance 1919 1060 / 1060
[2024-05-10 11:05] VITALS: BP 111/54
--- NOTE | 2024-05-10 11:11 | W.PN.GS2 ---
Addendum entered and electronically signed by Nish Heart MD 05/10/24 11:44:
I saw and examined the patient.
The Java Web User Interface Developer's note was reviewed and I agree with the note.
Comment: No complaints, feels well, denies n/v, unsure about flatus. exam approp ttp with incisions cdi, minimal distention, will trial cld
Original Note:
Today's Communication / Plan
-
Trial of clears
Assessment / Plan
-
Assessment: 79-year-old female with high-grade closed loop small bowel obstruction with transition point in the pelvis on CT imaging
Failed p.o. challenge with worsening obstructive symptoms
POD #1 lap SAMEER
AFVSS
Leukocytosis improved
NGT place preoperatively and removed after surgery
Plan:
Trial of clears, hold on further advancement of diet until passing flatus
Analgesics prn
IVF and medical management as per primary team
OOB/Ambulate. IS while awake.
Lovenox sq with SCDs for VTE ppx
Subjective Data
-
Date of Service: May 10, 2024
Patient seen and examined at bedside with Dr. Heart. Not sure if she has passed any flatus but denies n/v. Minimal abdominal discomfort.
Objective Data
-
Intake and Output
05/09/24 05/10/24 05/11/24
06:59 06:59 06:59
Intake Total 1919 1660 / 1660
Output Total 600 / 600
Balance 1919 1060 / 1060
Intake:
Oral fluids 120 / 120
IV fluids (Total) 1919 1540 / 1540
normosol 100 / 100
IV piggybacks 0 / 0 0 / 0
Output:
Urine, Monzon 500 / 500
Urine, Voided 100 / 100
Other:
Number of approximated MODERATE 4
amounts of urine
Number of approximated LARGE 1
amounts of urine
Vital Signs
Temp Pulse Resp BP Pulse Ox
98.2 F 57 16 134/57 99
05/10/24 07:05 05/10/24 07:05 05/10/24 07:05 05/10/24 07:05 05/10/24 07:05
Lab Results
05/10/24 04:38
05/10/24 04:38
Calcium 8.3 mg/dl (8.4-10.2) L 05/10/24 04:38
Total Bilirubin 0.7 mg/dl (0.2-1.3) 05/07/24 04:53
AST 30 U/L (14-36) 05/07/24 04:53
ALT 20 U/L (0-35) 05/07/24 04:53
Alkaline Phosphatase 102 U/L (38-126) 05/07/24 04:53
Total Protein 7.0 g/dl (6.3-8.2) 05/07/24 04:53
Albumin 4.4 g/dl (3.5-5.0) 05/07/24 04:53
Physical Exam
-
NAD
ABD: Mildly distended, soft, NT. No rebound rigidity or guarding
--- NOTE | 2024-05-10 14:12 | CM ---
Chart reviewed
Post op day #1
Clear liquids today advance as carlos
Encourage ambulation
Plan - anticipate home no needs when medically stable
[2024-05-10] MEDS: STERILE WATER FOR INJECTION 10 ML IV (14:53)
[2024-05-10] MEDS: ROCEPHIN 1000 MG IV (14:53)
[2024-05-10 15:27] VITALS: BP 130/74
[2024-05-10] MEDS: LOVENOX 40 MG SC (18:09)
--- NOTE | 2024-05-10 19:20 | PTCARENOTE ---
patient's daughter notified nursing staff that patient's face looked swollen, specifically her eyes and around her lips. House Provider, Fernanda RHODES, notified and up to see patient. Orders placed for suspected allergic reaction. Will cont
to monitor, medication administered per order.
--- NOTE | 2024-05-10 19:38 | W.PN.UPDATE ---
Update Note
Progress Note Update
Called to the patient`s room, the patient has swollen face and lips. Daughter at bedside.
Patient noted with swollen face, eyes, and redness around swollen lips. Patient denied SOB.
One time IV Benadryl was given and D/ C Rocephin and start the patient on Aztreonam.
[2024-05-10] MEDS: BENADRYL 25 MG IV (19:48)
[2024-05-10] MEDS: REFRESH EYE DROPS (PF) 1 DROPS OPHTH (19:49)
[2024-05-10 23:49] VITALS: BP 121/55
--- NOTE | 2024-05-11 05:59 | W.PN.HOSP.TC ---
Today's Communication/Plan
-
Likely discharge today after 1st dose Augmentin, if no adverse rxn noted an hour after administration.
Assessment / Plan
Assessment / Plan
Physical Exam
General: No acute distress, appears comfortable sitting up in chair
HEENT: normocephalic atraumatic moist oral mucosa
CVS: S1-S2 normal
Chest: CTA B/L
Abdomen: Soft, NT, bowel sounds present
Extremities: No edema
Neuro: awake alert conversant coherent
Psych: Calm
79F vaginal hysterectomy BSO SAMEER Cog dysfunction here for SBO.
# Small bowel obstruction
High-grade with transition point in the mid abdomen.
Liquid diet started-patient did not tolerate.
Vomited large amounts, NG tube placed with almost a liter of bilious fluid obtained to immediately 05/09/2024.
Patient was taken to the OR 05/09/[address] Bennett had laparoscopic lysis of adhesions.
Started on clear liquid diet advanced to low residue, tolerating well
# Leukocytosis
Chest x-ray shows patchy parenchymal opacity likely aspiration pneumonia.
Abnormal urinalysis- urine culture no growth to date
Initially treated with ceftriaxone but later developed facial swelling suspected allergic rxn since improved/resolved with Benadryl and switch to Aztreonam
Switching to Augmentin (tolerated in past as per patient's daughter Judy)
Planned for total 5 days abx 05/09/24-05/13/24
# Cognitive dysfunction
# Alcohol use 3 times a week-thiamine to be continued
# DVT prophylaxis-Lovenox
# Full code
Medically stable for discharge home with outpatient follow up recommendations
Discussed with patient and patient's daughter Judy.
Total Time Preparing Discharge ___40____ minutes including examination of the patient, summary of the hospital stay, instructions for continuing care to all relevant caregivers; and preparation of discharge records, prescriptions, and referral
forms if necessary.
Anticipated Discharge: Today
Subjective/Interval History
-
Date of Service: May 11, 2024
Seen and examined at bedside in no acute distress sitting up comfortably in chair. Facial swelling from prior reaction ceftriaxone resolved as per patient and patient's daughter Judy at bedside. Denies new acute issues. Tolerating low residue
diet. Eager to go home.
Objective Data
-
Labs:
Laboratory Results
05/11/24
05:49
WBC Pending
Hgb Pending
Hct Pending
Plt Count Pending
Sodium Pending
Potassium Pending
Chloride Pending
Carbon Dioxide Pending
BUN Pending
Creatinine Pending
Glucose Pending
Calcium Pending
Vital Signs:
Vital Signs
Temp Pulse Resp BP Pulse Ox
97.9 F 50 16 121/55 97
05/10/24 23:49 05/10/24 23:49 05/10/24 23:49 05/10/24 23:49 05/10/24 23:49
I&O
05/09/24 05/10/24 05/11/24
06:59 06:59 06:59
Intake Total 1919 1660 / 1660 1600 / 1600
Output Total 600 / 600
Balance 1919 1060 / 1060 1600 / 1600
[2024-05-11 07:00] VITALS: BP 137/63
[2024-05-11 08:13] LABS: % Basophils 0.3 % (0-2); % Eosinophils 4.9 % (0-6); % Immature Granulocytes 0.3 % (0-0.5); % Lymphocytes 29.4 % (20.5-51.1); % Monocytes 9.1 % (1.7-9.3); Absolute Eosinophils 0.3 10^3/uL (0-0.7); Absolute Lymphocytes 1.9 10^3/uL (1.2-3.4); Absolute Monocytes 0.6 10^3/uL (0.1-0.6); Absolute Neutrophils 3.6 10^3/uL (1.4-6.5); Hematocrit 33.9 % (37.0-47.0); Hemoglobin 11.3 g/dL (12.0-16.0); Mean Corp Hgb Conc. 33.3 g/dL (33.0-37.0); Mean Corpuscular Hgb 31.2 pg (27.0-31.0); Mean Corpuscular Volume 93.6 fL (81.0-99.0); Mean Platelet Volume 11.4 fL (7.4-10.4); Nucleated Red Blood Cells % 0 %; Platelet Count 214 10^3/uL (130-400); Red Blood Cell Count 3.62 10^6/uL (4.20-5.40); Red Cell Dist. Width 12.7 % (11.5-14.5); White Blood Cell Count 6.5 10^3/uL (4.8-10.8)
[2024-05-11] MEDS: THIAMINE INJECTION 200 MG IV (08:14)
[2024-05-11] MEDS: AZACTAM 1000 MG IV (08:15)
[2024-05-11] MEDS: STERILE WATER FOR INJECTION 10 ML IV (08:15)
[2024-05-11 08:20] LABS: Blood Urea Nitrogen 11 mg/dl (7-17); Calcium 8.2 mg/dl (8.4-10.2); Carbon Dioxide 30 mmol/L (22-30); Chloride 103 mmol/L (98-107); Estimated Creatinine Clearance 52 ml/min; Glucose 85 mg/dl (70-99); Magnesium 1.9 mg/dl (1.6-2.3); Potassium 3.5 mmol/L (3.5-5.1); Sodium 138 mmol/L (135-145); eGFR > 60.00
--- NOTE | 2024-05-11 09:43 | W.PN.GS2 ---
Today's Communication / Plan
-
`
Assessment / Plan
-
Assessment: 79-year-old female POD #2 status post lap SAMEER for SBO
AFVSS
Full return of GI function
Plan: Low residue/regular diet
Okay for discharge from surgical standpoint
Outpatient surgical follow-up with myself in couple weeks
Subjective Data
-
Date of Service: May 11, 2024
Patient seen and examined earlier this a.m.
Feeling well postop
Tolerating clear liquids and hungry
Passing flatus and had bowel movement this a.m.
Denies abdominal pain
Objective Data
-
Intake and Output
05/10/24 05/11/24 05/12/24
06:59 06:59 06:59
Intake Total 1660 / 1660 2079 / 2079
Output Total 600 / 600
Balance 1060 / 1060 2079 / 2079
Intake:
Oral fluids 120 / 120 1080 / 1080
IV fluids (Total) 1540 / 1540 1000 / 1000
normosol 100 / 100
IV piggybacks 0 / 0
Output:
Urine, Monzon 500 / 500
Urine, Voided 100 / 100
Other:
Number of approximated SMALL 1
amounts of urine
Number of approximated MODERATE 4 5
amounts of urine
Vital Signs
Temp Pulse Resp BP Pulse Ox
97.9 F 63 18 137/63 97
05/11/24 07:00 05/11/24 07:00 05/11/24 07:00 05/11/24 07:00 05/10/24 23:49
Lab Results
05/11/24 05:49
05/11/24 05:49
Calcium 8.2 mg/dl (8.4-10.2) L 05/11/24 05:49
Magnesium 1.9 mg/dl (1.6-2.3) 05/11/24 05:49
Total Bilirubin 0.7 mg/dl (0.2-1.3) 05/07/24 04:53
AST 30 U/L (14-36) 05/07/24 04:53
ALT 20 U/L (0-35) 05/07/24 04:53
Alkaline Phosphatase 102 U/L (38-126) 05/07/24 04:53
Total Protein 7.0 g/dl (6.3-8.2) 05/07/24 04:53
Albumin 4.4 g/dl (3.5-5.0) 05/07/24 04:53
Physical Exam
-
NAD AAOx3
ABD: Soft, nondistended, minimal tenderness at incision sites
Laparoscopic incisions with glue dressings.
--- NOTE | 2024-05-11 12:47 | W.DCSUMMARY ---
Discharge Summary
Discharge Data
Date of Admission: 05/07/24
Date of Discharge: 05/11/24
-
Pending Results: No
Discharge Plan
-
Patient Disposition: Home (Routine Discharge)
Discharge Diagnosis/Procedures: Small bowel obstruction due to band adhesion. Laparoscopic lysis of adhesions
Aspiration Pneumonia
Allergic Reaction Ceftriaxone
Condition: Good
Diet: As tolerated and Low Fiber
Additional Diets: Low fiber diet and smaller meals for the first 1-2 weeks postoperatively. When postoperative distention subsides may begin resuming a regular diet as tolerated.
Activity: No strenuous activity
Driving Restrictions: As prior to admission
Bathing Restrictions: OK to Shower
Blood Work: Thyroid function tests in 6 weeks
Others Tests: Repeat Chest X-ray with primary care provider in 1 month of discharge.
Wound Care: Glue at surgical sites typically peels off in 2 to 3 weeks
Activity Restrictions/Additional Instructions:
Please follow up with primary care provider in 1 week of discharge and surgeon in 2-3 weeks of discharge.
Tylenol has been prescribed as needed for pain. This is also available over the counter.
Augmentin has been prescribed to complete antibiotic treatment for pneumonia. 05/13/24 is your last day for antibiotics
Please take medications as prescribed/recommended and follow up with primary care provider and/or other healthcare provider involved in your care for refills and/or further adjustment to your medication regimen as necessary.
Referrals:
Ashish Bennett MD [Active] - in two to three weeks
Sari Isaac MD [Family Provider] - in one week
Prescriptions:
New
acetaminophen [Tylenol Extra Strength] 500 mg tablet
500 mg PO Q6H PRN (Reason: Pain) Qty: 30 0RF
amoxicillin-pot clavulanate 875-125 mg tablet
1 tab PO BID Qty: 5 0RF
Rx Instructions:
05/13/24 is your last day for antibiotics
Discharge Orders:
Discharge Patient (As Directed); Ordered 05/11/24
Ordered By: Pj Owen
Discharge Date and Time
Print Language: CROATIAN
[2024-05-11] MEDS: AUGMENTIN 875 MG/125 MG 1 TABLET PO (12:49)
--- NOTE | 2024-05-11 12:52 | CM ---
Patient seen at bedside. Patient states that she has no needs. IMM will need to be reviewed last completed 05/07. CM will continue to follow for discharge planning needs.
Plan; home with no needs
[2024-05-11] MEDS: STERILE WATER FOR INJECTION IV (13:05)
[2024-05-11 13:07] VITALS: BP 123/59
== END 2024-05-11 14:15 | disposition home or self-care (01) | DRG 335 ==
LOC: 2 SOUTH 12:11
PROVIDERS: Emergency Medicine; Surgery; ADMITTING PHYSICIAN Hospitalist; ATTENDING PHYSICIAN Internal Medicine; EMERGENCY PHYSICIAN Emergency Medicine; FAMILY PHYSICIAN Internal Medicine; OTHER PHYSICIAN Surgery
PROC: 0DN84ZZ Release Small Intestine, Percutaneous Endoscopic Approach (ICD-10-PCS; 2024-05-09)
DX: K56.52 Intestinal adhesions [bands] with complete obstruction (principal); J69.0 Pneumonitis due to inhalation of food and vomit; K46.0 Unspecified abdominal hernia with obstruction, without gangrene; Q43.0 Meckel's diverticulum (displaced) (hypertrophic); Z90.710 Acquired absence of both cervix and uterus
CPT/HCPCS: 71046; 74019; 74177; 76700; 80048; 80053; 81003; 81015; 82607; 83690; 83735; 84443; 84484; 85025; 87086; 93005; 96361; 96374; 96375; 96376; 99285; J1335; Q9967